=== PATIENT | male | born 1995 | race Caucasian/White ===

== ENCOUNTER 2019-09-25 14:03 | Emergency (ER) | payer MEDICAID, SELFPAY ==
[2019-09-25 14:08] VITALS: BP 140/78; PULSE 89; RESP 18; TEMP 36.7; O2SAT 98; BMI 22.0
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
[2019-09-25 14:30] VITALS: BP 130/68; PULSE 72; RESP 18; O2SAT 99
[2019-09-25 15:50] VITALS: RESP 18; O2SAT 98
[2019-09-25] MEDS: fentaNYL 50 mcg/mL INJ 2mL 100 MCG IVP (15:50)
[2019-09-25] MEDS: bacitracin ointment Pkt 1 EACH TOPICAL (16:49)
[2019-09-25 16:59] VITALS: BP 133/79; PULSE 87; RESP 16; TEMP 36.5; O2SAT 98
== END 2019-09-25 17:01 | disposition home or self-care (01) ==
PROVIDERS: Emergency Provider Emergency Medicine; PCP Family Medicine
DX: T21.01XA Burn of unspecified degree of chest wall, initial encounter (principal); T22.012A Burn of unspecified degree of left forearm, initial encounter; X16.XXXA Contact with hot heating appliances, radiators and pipes, initial encounter
CPT/HCPCS: 12345; 96374; 96375; 96376; 99282; 99283; J3010

== ENCOUNTER 2021-08-19 17:04 | Emergency (ER) | payer MEDICAID, SELFPAY ==
[2021-08-19 17:15] VITALS: BP 137/71; PULSE 83; RESP 16; TEMP 36.5; O2SAT 96
--- NOTE | 2021-08-19 17:26 | ED_ITS ---
HPI - Extremity Problem General: Chief complaint: Extremity Problem,Nontraumatic Stated complaint: Wants his hand to be looked at Time Seen by Provider: 08/19/21 17:26 History of Present Illness: 25-year-old male patient comes in today wanting his dressing changed to his right hand. Patient a week ago had cut his hand while dressing a chicken and injuring his tendon in his hand. Patient had surgery in [place] and was supposed to follow-up today for a dressing change and evaluation. Patient was unable to make the appointment due to not having any gas money. Patient was unable to get a Medicaid ride for not calling in advance. Dressing is intact. Patient is afebrile. Patient did smell of EtOH. Associated symptoms: Deny chest pain Review of Systems General: Reports: 10 or more systems reviewed and unremarkable except in HPI and below Card: Denies: chest pain Resp: Denies: dyspnea Musc: Reports: other (Right hand wound) [facility] ED PFSH: Social History (Updated 09/25/19 @ 14:16 by Carlie Dumont RN) Last alcohol use date: 09/24/19 Physical Exam Const: COMMON NORMALS: alert HENMT: HEAD & SCALP: normal to inspection Neck/C-Spine: GENERAL: Yes normal visual inspection Extremity: RIGHT UPPER EXTREMITY: Yes hand & digits (Hand is in a splint mid arm down, cap refill intact.) Right hand and digits: Yes inspection Neuro: SENSORIUM/ORIENTATION: Yes alert Course Vital Signs: Vital signs: Vital Signs Temperature 97.7 F 08/19/21 17:15 Pulse Rate 83 08/19/21 17:15 Respiratory Rate 16 08/19/21 17:15 Blood Pressure 137/71 08/19/21 17:15 Pulse Oximetry 96 08/19/21 17:15 MDM - Extremity (Nontraumatic) Medical Decision Making 25-year-old male patient comes in today with wound to the right hand. Patient was wanting a dressing change from his surgery to for repair of tendon from in [facility] 1 week ago. Patient was unable to go to his appointment today due to lack of transportation. I attempted to contact his surgeon at [facility] in [place] but no one was available. Vital signs were normal and exam was unremarkable. I recommended the patient follow-up with surgeon's office in the morning to discuss with them options of further care. Patient reported understanding agreed to plan. Differential diagnosis includes wound infection, tendon injury, substance use disorder. Discharge Plan Discharge Patient Disposition: Home Clinical Impression: Laceration of hand with complication Qualifiers: Encounter type: initial encounter Laterality: right Qualified Code(s): S61.411A - Laceration without foreign body of right hand, initial encounter Condition: Stable Prescriptions: No Action No Known Home Medications 0RF [place] 7.5-325 mg tablet 1 tab PO Q6H PRN (Reason: pain) Qty: 10 0RF Discharge Orders: Discharge ED (Routine); Ordered 08/19/21 Ordered By: Moshe Turcios Referrals: Enrique Florentino MD [Primary Care Provider] - Discharge Diet: Usual diet Discharge Activity: Increase activity as tolerated Patient Instructions: Opioid Safety Activity Restrictions/Additional Instructions: Follow-up with primary care in the morning, they can contact the surgeons office for further evaluation and treatment. Coding Level of Care Code ED Virologist for John Myers
== END 2021-08-19 18:09 | disposition home or self-care (01) ==
PROVIDERS: Emergency Provider Nurse Practitioner Family; PCP Family Medicine
DX: Z48.00 Encounter for change or removal of nonsurgical wound dressing (principal)
CPT/HCPCS: 99281

== ENCOUNTER 2021-08-23 17:16 | Emergency (ER) | payer MEDICAID, SELFPAY ==
[2021-08-23 17:17] VITALS: BP 117/68; PULSE 69; RESP 16; TEMP 36.6; O2SAT 98
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
== END 2021-08-23 17:44 | disposition home or self-care (01) ==
PROVIDERS: Emergency Provider Nurse Practitioner Family; PCP Family Medicine
DX: M79.641 Pain in right hand (principal)
CPT/HCPCS: 99283

== ENCOUNTER 2021-08-24 11:47 | Emergency (ER) | payer MEDICAID, SELFPAY ==
[2021-08-24 12:08] VITALS: BP 130/65; PULSE 86; RESP 19; TEMP 36.6; O2SAT 97; BMI 22.8
--- NOTE | 2021-08-24 12:17 | W.ED.EXTPRO ---
Documented by User: [email or web address] Trejo 08/24/21 13:51 HPI - Extremity Problem General: Chief complaint: General Medical Stated complaint: Says his hand is turning black, yellow, swollen Time Seen by Provider: 08/24/21 11:49 Source: patient Mode of arrival: ambulatory Limitations: no limitations History of Present Illness: Patient is a 25-year-old male who presents to ED today for evaluation following flexor tendon repairs on his right hand. Patient states he had surgery by [facility] Monson hand surgeon, on 08/11. Patient has been seen here in our facility twice already for similar complaints. Patient has yet to follow-up with his hand surgeon even though he has had multiple appointments made stating he does not have transportation to [place]. Patient is very neurotic on exam and demanding that I send him by emergency transport to [place] stating he is going to lose all of his fingers. He is not wearing his splint currently. He admittedly has not been wearing this is much as he should. He also has not been elevating his hand/digits like he is supposed to. He has finished his antibiotic course that he was prescribed following surgery. MD Complaint: extremity pain and extremity swelling Onset (ago): day(s) Associated symptoms: Deny fever(s) Review of Systems Const: Denies: fever(s), chills or body aches Musc: Reports: extremity pain (R hand) and extremity swelling (R hand) Neuro: Denies: numbness in extremities or sensory changes [facility] ED PFSH: Social History Last alcohol use date: 09/24/19 Physical Exam Const: COMMON NORMALS: no acute distress, average body habitus, patient oriented x3, no limitations, alert and well nourished Cardio: COMMON NORMALS: regular rate and regular rhythm RATE: regular rate RHYTHM: regular rhythm Extremity: GENERAL: Yes normal exam except as noted RIGHT UPPER EXTREMITY: Yes hand & digits OTHER: pt has intact sutures to palmar aspects of R 2-5 digits from recent flexor tendon repairs; no wound dehiscence; digits are diffusely swollen; cap refill and sensation are intact; he has some mild underlying purulence to his second and third digits near incision site; no cellulitis noted; no lymphangitic streaking Neuro: COMMON NORMALS: patient oriented x3 SENSORIUM/ORIENTATION: Yes alert Course Consultations: Consultation #1: Dr. Garcia-[facility] hand surgeon-he was sent multiple pictures of patients hand/digits and recommend we place him on Clindamycin, recommend he wear splint and elevate like he is supposed to and he is willing to see patient in office whenever he is able to get a ride-preferably as soon as possible but there is no need for emergent transport at this time Vital Signs: Vital signs: Vital Signs Temperature 97.9 F 08/24/21 12:08 Pulse Rate 86 08/24/21 12:08 Respiratory Rate 16 08/24/21 13:46 Blood Pressure 130/65 08/24/21 12:08 Pulse Oximetry 99 08/24/21 13:46 MDM - Extremity (Nontraumatic) Medical Decision Making Have spoken to patient's hand surgeon Dr. Garcia and sent him multiple pictures of patient's wounds. He recommended placing patient on Clindamycin. He needs to wear his splint and elevate the extremity like he is supposed to be doing. Unfortunately I think noncompliance and transportation issues have hindered patient's postsurgical results. He was on the phone with [employer] during our examination and I believe has secured transport to [place] for next week sometime. I recommended patient try to get a sooner ride to [place] by a friend/family member if possible. Dr. Garcia stated he would be willing to see patient as a walk-in at any time if he is able to get to [place]. Recommended patient call prior to going to make sure surgeon is not in OR that day. Patient needs to fill his Clindamycin and start on it immediately. Return to ED precautions given. Discharge Plan Discharge Patient Disposition: Home Clinical Impression: Status post tendon repair, Post-operative pain Condition: Stable Prescriptions: New clindamycin HCl 300 mg capsule 300 mg PO Q6H 7 Days Qty: 28 0RF No Action hydrocodone-acetaminophen 7.5-325 mg tablet 1 tab PO Q6H PRN (Reason: pain (scale score 7-10)) Qty: 10 0RF Discharge Orders: Discharge ED (Routine); Ordered 08/24/21 Ordered By: Angella Rea Referrals: Enrique Florentino MD [Primary Care Provider] - Coding Level of Care Code ED Accounting Lecturer for Chg Fwd Exam Expanded Problem Focused Documented by User: Corey Gill DO 08/25/21 06:48 HPI - Extremity Problem General: Chief complaint: General Medical Stated complaint: Says his hand is turning black, yellow, swollen Time Seen by Provider: 08/24/21 11:49 PFSH ED PFSH: Social History Last alcohol use date: 09/24/19 Course Vital Signs: Vital signs: Vital Signs Temperature 97.9 F 08/24/21 12:08 Pulse Rate 86 08/24/21 12:08 Respiratory Rate 16 08/24/21 13:46 Blood Pressure 130/65 08/24/21 12:08 Pulse Oximetry 99 08/24/21 13:46 MDM - Extremity (Nontraumatic) Medical Decision Making Have spoken to patient's hand surgeon Dr. Garcia and sent him multiple pictures of patient's wounds. He recommended placing patient on Clindamycin. He needs to wear his splint and elevate the extremity like he is supposed to be doing. Unfortunately I think noncompliance and transportation issues have hindered patient's postsurgical results. He was on the phone with [employer] during our examination and I believe has secured transport to [place] for next week sometime. I recommended patient try to get a sooner ride to [place] by a friend/family member if possible. Dr. Garcia stated he would be willing to see patient as a walk-in at any time if he is able to get to [place]. Recommended patient call prior to going to make sure surgeon is not in OR that day. Patient needs to fill his Clindamycin and start on it immediately. Return to ED precautions given. Chart reviewed and patient discussed with midlevel. Agree with assessment and plan. Discharge Plan Discharge Patient Disposition: Home Clinical Impression: Status post tendon repair, Post-operative pain Condition: Stable Prescriptions: New clindamycin HCl 300 mg capsule 300 mg PO Q6H 7 Days Qty: 28 0RF No Action hydrocodone-acetaminophen 7.5-325 mg tablet 1 tab PO Q6H PRN (Reason: pain (scale score 7-10)) Qty: 10 0RF Discharge Orders: Discharge ED (Routine); Ordered 08/24/21 Ordered By: Angella Rea Referrals: Enrique Florentino MD [Primary Care Provider] - Coding Level of Care Code ED Accounting Lecturer for Chg Fwd Exam Expanded Problem Focused
[2021-08-24 13:46] VITALS: RESP 16; O2SAT 99
[2021-08-24] MEDS: morphine 4 mg/mL SDV 1 mL IM (13:46)
== END 2021-08-24 14:52 | disposition home or self-care (01) ==
PROVIDERS: Emergency Provider Physician Assistant; PCP Family Medicine
DX: G89.18 Other acute postprocedural pain (principal); Z98.890 Other specified postprocedural states
CPT/HCPCS: 96372; 99283; J2270

== ENCOUNTER 2021-08-27 14:32 | Emergency (ER) | payer MEDICAID, SELFPAY ==
--- NOTE | 2021-08-27 14:41 | PC.NURSE ---
CALL TO [facility] NO ANSWER WILL ATTEMPT TO TRIAGE AGAIN LATER.
[2021-08-27 14:55] VITALS: BP 122/73; PULSE 105; RESP 18; TEMP 36.6; O2SAT 99; BMI 21.2
--- NOTE | 2021-08-27 15:04 | W.ED.EXTPRO ---
HPI - Extremity Problem General: Chief complaint: Extremity Injury, Upper Stated complaint: hand injury Time Seen by Provider: 08/27/21 15:00 History of Present Illness: Patient is a 25-year-old male comes to the ED with Right hand pain. Patient has been seen here multiple times for same complaint within the last week. Patient cut right hand back on August 13 and had multiple tendons severed in fingers. He went and saw hand specialist and they performed tendon reattachment surgery on right hand. He missed his follow-up appointment with his hand surgeon but is rescheduled to see hand surgeon on August 31 for follow-up. He is here to have right hand bandage reapplied and for post pain in right hand. He is currently taking clindamycin. denies any reinjury or trauma to her right hand since surgery. Associated symptoms: Deny chest pain, fever(s) or rash Review of Systems Const: Denies: fever(s), chills or fatigue Eyes: Denies: change in vision or eye discomfort ENMT: Denies: throat pain, odynophagia, nasal discharge or nasal congestion Card: Denies: chest pain, palpitations, edema, swelling of feet/ankles, dyspnea on exertion or orthopnea Resp: Denies: dyspnea, productive cough or non-productive cough GI: Denies: abdominal pain, nausea, vomiting, diarrhea, constipation or hematochezia : Denies: flank pain, difficulty urinating, dysuria or hematuria Musc: Reports: extremity pain (Right hand pain-postop); Denies: neck pain, back pain or extremity swelling Skin/Breast: Denies: rash or new lesions Neuro: Denies: headache(s), numbness in extremities or weakness in extremities PFS ED PFSH: Medical History No pertinent family history Surgical History Status post tendon repair Social History Last alcohol use date: 09/24/19 Physical Exam Const: COMMON NORMALS: no acute distress, patient oriented x3 and alert GENERAL APPEARANCE: cooperative and comfortable HENMT: COMMON NORMALS: normocephalic HEAD & SCALP: normocephalic MOUTH: Normal oral and palatal mucosa present THROAT: posterior oropharynx normal and uvula midline Neck/C-Spine: COMMON NORMALS: supple GENERAL: Yes normal visual inspection Resp: COMMON NORMALS: normal respiratory effort, No retractions, No use of accessory muscles and clear to auscultation bilaterally AUSCULTATION: clear to auscultation bilaterally Cardio: COMMON NORMALS: regular rate, regular rhythm, S1 normal heart sound present, S2 normal heart sound present, No gallops present (Cardio), No clicks present (Cardio), No murmurs present (Cardio) and Peripheral pulses 2+ throughout RATE: regular rate RHYTHM: regular rhythm HEART SOUNDS: S1 normal heart sound present and S2 normal heart sound present PERIPHERAL PULSES: Peripheral pulses 2+ throughout GI: COMMON NORMALS: Normal to inspection, nondistended, normoactive bowel sounds present, Soft to palpation, non-tender and no masses PALPATION: Yes Soft to palpation : COMMON NORMALS: Yes no CVA tenderness BLADDER/KIDNEY EXAM: Yes no CVA tenderness Back/Pelvis: COMMON NORMALS: no CVA tenderness Extremity: NARRATIVE EXTREMITY EXAM: pt has intact sutures to palmar aspects of R 2-5 digits from recent flexor tendon repairs; no wound dehiscence; digits are diffusely swollen; cap refill and sensation are intact. no cellulitis noted; no lymphangitic streaking Neuro: COMMON NORMALS: patient oriented x3 and moves all extremities SENSORIUM/ORIENTATION: Yes alert Skin: GENERAL SKIN EXAM: dry skin Course Vital Signs: Vital signs: Vital Signs Temperature 97.9 F 08/27/21 14:55 Pulse Rate 102 H 08/27/21 15:08 Respiratory Rate 18 08/27/21 15:08 Blood Pressure 122/73 08/27/21 15:08 Pulse Oximetry 99 08/27/21 15:08 MDM - Extremity (Nontraumatic) Medical Decision Making Patient is a 25-year-old male comes to the ED with right hand pain. Patient has been seen here approximately 3 times within the last week for same complaint. He was finally able to set up a follow-up appointment with the hand surgeon on August 31. He has continued taking his clindamycin as previously prescribed. Exam of right hand shows postop tendon repair with no signs of cellulitis noted. I strongly advised patient that he needs to follow-up with surgeon at his scheduled appointment on August 31 for further evaluation and management of right hand pain and postsurgical healing. I told to continue taking his clindamycin as prescribed and I sent him with a prescription of hydrocodone 5/325mg #8 tablets for pain. Return to ED precautions given. Patient understood and agreed with plan. Discharge Plan Discharge Patient Disposition: Home Clinical Impression: Status post tendon repair, Post-operative pain Condition: Stable Prescriptions: No Action hydrocodone-acetaminophen 7.5-325 mg tablet 1 tab PO Q6H PRN (Reason: pain (scale score 7-10)) Qty: 10 0RF clindamycin HCl 300 mg capsule 300 mg PO Q6H 7 Days Qty: 28 0RF Discharge Orders: Discharge ED (Routine); Ordered 08/27/21 Ordered By: Enrique Bowers Referrals: Enrique Florentino MD [Primary Care Provider] - Discharge Diet: Regular Discharge Activity: Increase activity as tolerated Patient Instructions: Opioid Safety Activity Restrictions/Additional Instructions: Follow-up with hand specialist at your scheduled appointment on August 31. Take medications as prescribed. Continue taking previously prescribed antibiotic. Return to the ER or your medical provider if condition worsens. Please read and understand discharge instructions. Thank you for choosing [facility] for your healthcare needs today. Please realize this is an emergency room and that we are providing you with a medical screening exam and this may not be complete and all inclusive of all the testing and or work up that you may need to determine your ailment or severity of your illness. It is very important that you follow up as instructed or that you return to the Emergency Department should you have concerns or if your condition changes or worsens in any way. 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
[2021-08-27 15:08] VITALS: BP 122/73; PULSE 102; RESP 18; O2SAT 99
[2021-08-27] MEDS: HYDROcodone-acetaminophen 5-325 mg Tablet 1 TAB PO (15:16)
== END 2021-08-27 15:17 | disposition home or self-care (01) ==
LOC: ER 15:10
PROVIDERS: Emergency Provider Physician Assistant; PCP Family Medicine
DX: G89.18 Other acute postprocedural pain (principal); M79.641 Pain in right hand
CPT/HCPCS: 99283

== ENCOUNTER 2023-06-09 04:44 | Emergency (ER) | payer MEDICAID, SELFPAY ==
[2023-06-09 04:47] VITALS: BP 136/77; PULSE 83; RESP 20; TEMP 36.4; O2SAT 97; BMI 22.8
--- NOTE | 2023-06-09 04:48 | W.ED.DENTAL ---
HPI - Dental/Oral General: Chief complaint: Dental/Oral Stated complaint: Mouth Pain Time Seen by Provider: 06/09/23 04:47 History of Present Illness: 27-year-old male presents to the emergency department with complaints of dental pain to the upper left teeth. He states this has been going on for approximately 6 years and has not seen a dentist for it. He states he noticed the dental pain more since he stopped drinking. He states that he feels like the pain is a throbbing pain that goes from his teeth down through his shoulder to his feet and back up to his mouth. Patient states that nothing seems to make it better nothing seems to make his pain worse. He denies difficulty with phonation or swallowing. Review of Systems General: Reports: 10 or more systems reviewed and unremarkable except in HPI and below ENMT: Reports: dental pain [facility] ED PFSH: Medical History No pertinent family history Surgical History Status post tendon repair Physical Exam Const: COMMON NORMALS: no acute distress, patient oriented x3 and alert HENMT: COMMON NORMALS: normocephalic, atraumatic, Normal external nose present and moist oral mucous membranes HEAD & SCALP: normocephalic and atraumatic NOSE: Normal external nose present TEETH & GINGIVA: Yes caries, Yes poor dentition and Yes teeth discoloration Eye: COMMON NORMALS: Equal, round and reactive pupils present and EOMs intact bilaterally PUPIL: Yes Equal, round and reactive pupils present Neck/C-Spine: COMMON NORMALS: full ROM, supple and no meningeal signs Resp: COMMON NORMALS: normal respiratory effort and clear to auscultation bilaterally AUSCULTATION: clear to auscultation bilaterally Cardio: COMMON NORMALS: regular rate, regular rhythm, S1 normal heart sound present and S2 normal heart sound present RATE: regular rate RHYTHM: regular rhythm HEART SOUNDS: S1 normal heart sound present and S2 normal heart sound present GI: COMMON NORMALS: Normal to inspection, nondistended, normoactive bowel sounds present and Soft to palpation PALPATION: Yes Soft to palpation Extremity: COMMON NORMALS: normal to inspection and full ROM Neuro: COMMON NORMALS: patient oriented x3 SENSORIUM/ORIENTATION: Yes alert MENINGEAL SIGNS: Yes no meningeal signs Psych: COMMON NORMALS: cooperative and normal affect Skin: COMMON NORMALS: no rashes or lesions noted GENERAL SKIN EXAM: no rashes or lesions noted Course Vital Signs: Vital signs: Vital Signs Temperature 97.6 F 06/09/23 04:47 Pulse Rate 79 06/09/23 04:58 Respiratory Rate 14 06/09/23 04:58 Blood Pressure 132/77 06/09/23 04:58 Pulse Oximetry 96 06/09/23 04:58 Oxygen Delivery Me thod Room Air 06/09/23 04:58 MDM - Dental/Oral Medical Decision Making Physical exam completed and documented I will provide the patient written prescription for NSAIDs and recommend he follow-up with his dentist. Medical Records I reviewed the patient's medical records. No radiology studies performed this visit Discharge Plan Discharge Patient Disposition: Home Clinical Impression: Toothache, Dental caries Prescriptions: New naproxen 500 mg tablet 500 mg PO Q12H PRN (Reason: pain) Qty: 20 0RF No Action hydrocodone-acetaminophen 7.5-325 mg tablet 1 tab PO Q6H PRN (Reason: pain (scale score 7-10)) Qty: 10 0RF Discharge Orders: Discharge ED (Routine); Ordered 06/09/23 Ordered By: Clemente Lai Referrals: Enrique Florentino MD [Primary Care Provider] - Discharge Diet: Usual diet Discharge Activity: Resume usual activity Patient Instructions: Opioid Safety, Pain Management Activity Restrictions/Additional Instructions: Follow-up with your dentist for additional evaluation. 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
[2023-06-09 04:58] VITALS: BP 132/77; PULSE 79; RESP 14; O2SAT 96
[2023-06-09] MEDS: ketorolac 30 mg/mL INJ IM (05:08)
== END 2023-06-09 05:11 | disposition home or self-care (01) ==
PROVIDERS: Emergency Provider Internal Medicine; PCP Family Medicine
DX: K02.9 Dental caries, unspecified (principal)
CPT/HCPCS: 96372; 99284; J1885

== ENCOUNTER 2023-06-20 08:02 | Emergency (ER) | payer MEDICAID, SELFPAY ==
--- NOTE | 2023-06-20 08:06 | ECG_ITS ---
[facility] Test Date: 2023-06-20 Pat Name: Mike Rocha Department: Room: Gender: Male [employer]: : 1995 Requested By: Corey Ortiz Order Number: [id number] Ruth MD: Amy Christianson M.D. Measurements Intervals [place] Rate: 81 P: 88 [place]: 126 QRS: 91 QRSD: 92 T: 82 QT: 400 QTc: 467 Interpretive Statements SINUS RHYTHM BORDERLINE RIGHT AXIS DEVIATION [QRS AXIS > 90] Compared to ECG 03/12/2017 10:02:59 Incomplete right bundle-branch block no longer present Electronically Signed On 06-21-2023 23:41:19 CDT by Amy Christianson M.D. [id number]
[2023-06-20 08:07] VITALS: BP 117/62; PULSE 88; RESP 16; TEMP 36.6; O2SAT 99
[2023-06-20 08:23] LABS: Basophils % 0.7 %; Eosinophils # 0.1 10^3/uL (0.0-0.8); Eosinophils % 1.1 %; Hematocrit 36.9 % (37-53); Lymphocytes # 1.5 10^3/uL (0.8-4.8); Lymphocytes % 33.4 %; Mean Corpuscular HGB Conc 33.9 g/dL (30-55); Mean Corpuscular Hemoglobin 31.8 pg (27-33); Mean Corpuscular Volume 93.9 fl (82-101); Mean Platelet Volume 10.1 fL (7.4-10.4); Monocytes # 0.3 10^3/uL (0.2-0.9); Monocytes % 6.7 %; Neutrophils % 57.9 %; Nucleated Red Blood Cells % 0 %; Platelet Count 240 10^3/cmm (157-399); Red Blood Count 3.93 10^6/uL (3.85-5.65); Red Cell Distribution Width 11.5 % (12.1-15.1); White Blood Count 4.49 10^3/uL (3.29-11.43)
--- NOTE | 2023-06-20 08:26 | XR_ITS ---
WS: [id number] Exam: XR chest 1V portable [id number] Date/Time of Exam: 06/20/2023 8:26 AM Reason For Exam: dyspnea/cough Comparison 05/13/2016. Findings: The lungs are clear and fully expanded. Costophrenic angles are sharp. No infiltrates. Bronchovascula r relief appears normal. Cardiac silhouette is unremarkable. Bony elements are intact. IMPRESSION: Unremarkable chest radiograph.
[2023-06-20 08:38] LABS: D Dimer 0.32 ug/mLFEU (0-0.59)
--- NOTE | 2023-06-20 08:39 | ED_ITS ---
HPI - Chest Pain 2 General: Chief Complaint: Chest Pain Stated Complaint: chest pain Time Seen by Provider: 06/20/23 08:10 Source: patient Mode of arrival: ambulatory History of Present Illness: 27-year-old male presents with complaint s of substernal chest pain. No radiation of the pain. 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 No fever sweats chills or productive cough no hemoptysis. MD complaint: chest pain Associated symptoms: Deny abdominal pain, dyspnea or fever(s) Review of Systems 2 Const: Denies: fever(s) or chills Card: Denies: chest pain Resp: Denies: dyspnea GI: Denies: abdominal pain : Denies: dysuria, urinary frequency or urinary urgency Musc: Denies: neck pain or back pain Skin/Breast: Denies: rash PFSH ED 2 PFSH: Medical History Psychiatric care No pertinent family history Surgical History Status post tendon repair Physical Exam 2 Const: COMMON NORMALS: no acute distress GENERAL APPEARANCE: cooperative and comfortable ORIENTATION/CONSCIOUSNESS: Yes awake, Yes oriented to person, Yes oriented to place and Yes oriented to time HENMT: COMMON NORMALS: normocephalic, atraumatic and hearing grossly normal bilaterally HEAD & SCALP: normocephalic and atraumatic Resp: COMMON NORMALS: normal respiratory effort, No retractions, No use of accessory muscles and clear to auscultation bilaterally AUSCULTATION: clear to auscultation bilaterally Cardio: COMMON NORMALS: regular rate, regular rhythm and No murmurs present (Cardio) RATE: regular rate RHYTHM: regular rhythm GI: COMMON NORMALS: Soft to palpation and No hepatosplenomegaly present A USCULTATION: Yes normoactive bowel sounds PALPATION: Yes Soft to palpation, No Tenderness to palpation present (GI), No Guarding due to palpation present (GI) and Yes No hepatosplenomegaly present Extremity: COMMON NORMALS: normal to inspection, capillary refill normal, no clubbing, cyanosis or edema, no calf tenderness and no pedal edema Neuro: SENSORIUM/ORIENTATION: Yes oriented to person, Yes oriented to place and Yes oriented to time Skin: COMMON NORMALS: no rashes or lesions noted GENERAL SKIN EXAM: no rashes or lesions noted Course 2 Vital Signs: Vital signs: Vital Signs Temperature 97.9 F 06/20/23 12:32 Pulse Rate 69 06/20/23 12:32 Respiratory Rate 16 06/20/23 12:32 Blood Pressure 95/79 06/20/23 12:32 Pulse Oximetry 99 06/20/23 12:32 Oxygen Delivery Me thod Room Air 06/20/23 09:45 MDM - Chest Pain Medical Decision Making Patient extremely anxious has a history of substance abuse. He test positive for marijuana but negative for methamphetamines and alcohol. No evidence of acute coronary syndrome his D-dimer is normal chest x-ray is unremarkable cardiac enzymes negative EKG does not show any acute changes white count is normal hemoglobin stable. Suspect this may be GI in nature discharge patient home on Protonix he has any worsening or changes symptoms develop fever return to the emergency room he is feeling much better and is anxiously at the time of discharge Medical Records I reviewed the patient's medical records. Lab Data I reviewed the patient's lab results. 06/20/23 08:17 06/20/23 08:17 Laboratory Results WBC 4.49 10^3/uL (3.29-11.43) 06/20/23 08:17 RBC 3.93 10^6/uL (3.85-5.65) 06/20/23 08:17 Hgb 12.50 g/dL (11.27-16.99) 06/20/23 08:17 Hct 36.9 % (37-53) L 06/20/23 08:17 MCV 93.9 fl (82-101) 06/20/23 08:17 MCH 31.8 pg (27-33) 06/20/23 08:17 MCHC 33.9 g/dL (30-55) 06/20/23 08:17 RDW 11.5 % (12.1-15.1) L 06/20/23 08:17 Plt Count 240 10^3/cmm (157-399) 06/20/23 08:17 MPV 10.1 fL (7.4-10.4) 06/20/23 08:17 Neut % (Auto) 57.9 % 06/20/23 08:17 Lymph % (Auto) 33.4 % 06/20/23 08:17 [place] % (Auto) 6.7 % 06/20/23 08:17 Eos % (Auto) 1.1 % 06/20/23 08:17 Baso % (Auto) 0.7 % 06/20/23 08:17 Neut # (Auto) 2.60 10^3/uL (1.8-7.7) 06/20/23 08:17 Lymph # (Auto) 1.5 10^3/uL (0.8-4.8) 06/20/23 08:17 [place] # (Auto) 0.3 10^3/uL (0.2-0.9) 06/20/23 08:17 Eos # (Auto) 0.1 10^3/uL (0.0-0.8) 06/20/23 08:17 Baso # (Auto) 0.0 10^3/uL (0.0-0.1) 06/20/23 08:17 Nucleated RBC % (auto) 0 % 06/20/23 08:17 Nucleated RBCs # 0.0 /100WBC 06/20/23 08:17 D-Dimer 0.32 ug/mLFEU (0-0.59) 06/20/23 08:17 Sodium 139 mmol/L (136-145) 06/20/23 08:17 Potassium 3.9 mmol/L (3.5-5.1) 06/20/23 08:17 Chloride 104 mmol/L (98-107) 06/20/23 08:17 Carbon Dioxide 23 mmol/L (22-29) 06/20/23 08:17 Anion Gap 15.9 (5-19) 06/20/23 08:17 BUN 12 mg/dL (6-20) 06/20/23 08:17 Creatinine 0.8 mg/dL (0.7-1.2) 06/20/23 08:17 GFR Calculation 116.0 mL/min (90-130) 06/20/23 08:17 Glucose 105 mg/dL (65-115) 06/20/23 08:17 Calculated Osmolality 288 mOsm/kg (285-295) 06/20/23 08:17 Calcium 9.3 mg/dL (8.5-10.5) 06/20/23 08:17 Total Bilirubin 0.6 mg/dL (0.15-1.2) 06/20/23 08:17 AST 13 U/L (0-40) 06/20/23 08:17 ALT 10 U/L (0-41) 06/20/23 08:17 Alkaline Phosphatase 60 U/L (40-130) 06/20/23 08:17 Troponin T Baseline < 6 ng/L (0-15) 06/20/23 08:17 Troponin T 120 Minute 6.00 ng/L (0-15) 06/20/23 10:38 Delta Troponin T 0.09807 ABS# (0-10) 06/20/23 10:38 Total Protein 7.5 g/dL (6.6-8.7) 06/20/23 08:17 Albumin 4.4 g/dL (3.5-5.2) 06/20/23 08:17 Globulin 3.1 g/dL (1.3-4.6) 06/20/23 08:17 Urine Color Yellow (Yellow) 06/20/23 08:56 Urine Appearance Sl hazy (CLEAR) A 06/20/23 08:56 Urine pH 7 (5-7) 06/20/23 08:56 Ur Specific [place] 1.015 (1.005-1.030) 06/20/23 08:56 Urine Protein Neg (Negative) 06/20/23 08:56 Urine Glucose (UA) Norm (Normal) 06/20/23 08:56 Urine Ketones Negative (Negative) 06/20/23 08:56 Urine Blood Neg (Negative) 06/20/23 08:56 Urine Nitrate Negative (Negative) 06/20/23 08:56 Urine Bilirubin Neg (Negative) 06/20/23 08:56 Urine Urobilinogen Norm mg/dL (Negative) 06/20/23 08:56 Ur Leukocyte Esterase Negative (Negative) 06/20/23 08:56 Urine RBC 0-4 /hpf (0-2) H 06/20/23 08:56 Urine WBC 0-4 /hpf (0-5) H 06/20/23 08:56 Ur Squamous Epith Cells 0-4 /hpf (0-5) H 06/20/23 08:56 Amorphous Sediment Trace /hpf 06/20/23 08:56 Urine Bacteria Trace /hpf (NONE) 06/20/23 08:56 Urine Mucus 1+ /hpf 06/20/23 08:56 Urine Opiates Screen Negative ng/mL (Negative) 06/20/23 08:56 Ur Barbiturates Screen Negative ng/mL (Negative) 06/20/23 08:56 Ur Phencyclidine Scrn Negative ng/mL (Negative) 06/20/23 08:56 Ur Amphetamines Screen Negative ng/mL (Negative) 06/20/23 08:56 U Benzodiazepines Scrn Negative ng/mL (Negative) 06/20/23 08:56 Urine Cocaine Screen Negative ng/mL (Negative) 06/20/23 08:56 U Marijuana (THC) Screen Positive ng/mL (Negative) H 06/20/23 08:56 Ethyl Alcohol < 10 mg/dL (0-10) 06/20/23 08:17 All radiology interpretation(s) finalized by discharge Discharge Plan Discharge Patient Disposition: Home Clinical Impression: Atypical chest pain Condition: Stable Prescriptions: New Pepcid 40 mg tablet 40 mg PO BID Qty: 60 0RF No Action naproxen 500 mg tablet 500 mg PO Q12H PRN (Reason: pain) Qty: 20 0RF Discharge Orders: Discharge ED (Routine); Ordered 06/20/23 Ordered By: Corey Gill Referrals: Enrique Florentino MD [Primary Care Provider] - Discharge Diet: As Directed Discharge Activity: Resume usual activity Patient Instructions: Diet for Stomach Ulcers and Gastritis (ED), GERD (Gastroesophageal Reflux Disease) (ED), Opioid Safety, Pain Management Activity Restrictions/Additional Instructions: Thank you for choosing [facility] for your healthcare needs today. Please realize this is an emergency room and that we are providing you with a medical screening exam and this may not be complete and all inclusive of all the testing and or work up that you may need to determine your ailment or severity of your illness. It is very important that you follow up as instructed or that you return to the Emergency Department should you have concerns or if your condition changes or worsens in any way. Coding Level of Care Code ED Clinical Dietician for John Myers
[2023-06-20 08:40] LABS: Alanine Aminotransferase 10 U/L (0-41); Albumin Level 4.4 g/dL (3.5-5.2); Alcohol Level < 10 mg/dL (0-10); Alkaline Phosphatase 60 U/L (40-130); Anion Gap 15.9 (5-19); Aspartate Amino Transferase 13 U/L (0-40); Blood Urea Nitrogen 12 mg/dL (6-20); Calcium 9.3 mg/dL (8.5-10.5); Carbon Dioxide 23 mmol/L (22-29); Chloride 104 mmol/L (98-107); Creatinine Clr Calc Pharmacy 139.2435; Globulin 3.1 g/dL (1.3-4.6); Glucose 105 mg/dL (65-115); Osmolality Calculated 288 mOsm/kg (285-295); Potassium 3.9 mmol/L (3.5-5.1); Sodium 139 mmol/L (136-145); Total Bilirubin 0.6 mg/dL (0.15-1.2); Total Protein 7.5 g/dL (6.6-8.7)
--- NOTE | 2023-06-20 09:24 | PC.PHAR ---
PT WANTS HYDROCODONE FROM 2021 OFF HIS RECORD. HE DOES NOT TAKE IT AND DOES NOT SEEK IT. 06/20/23
[2023-06-20 09:45] VITALS: BP 115/67; PULSE 69; O2SAT 99
--- NOTE | 2023-06-20 09:53 | ECG_ITS ---
[facility] Test Date: 2023-06-20 Pat Name: Mike Rocha Department: Room: Gender: Male Sub Prior: : 1995 Requested By: Corey Ortiz Order Number: [id number] Ruth MD: Amy Christianson M.D. Measurements Intervals [place] Rate: 55 P: 89 [place]: 122 QRS: 92 QRSD: 96 T: 86 QT: 442 QTc: 426 Interpretive Statements SINUS BRADYCARDIA WITH SINUS ARRHYTHMIA BORDERLINE RIGHT AXIS DEVIATION [QRS AXIS > 90] EARLY REPOLARIZATION [ST ELEVATION WITH NORMALLY INFLECTED T-WAVE] Compared to ECG 06/20/2023 08:06:54 Early repolarization now present Sinus rhythm no longer present Electronically Signed On 06-21-2023 23:43:45 CDT by Amy Christianson M.D. [id number]
[2023-06-20 09:55] LABS: Add Urine Microscopic? YES; Bilirubin Urine Neg (Negative); Blood Urine Neg (Negative); Glucose Urine UA Norm (Normal); Ketones Urine Negative (Negative); Leukocyte Esterase Urine Negative (Negative); Nitrate Urine Negative (Negative); Protein Urine Neg (Negative); Specific Gravity, Urine 1.015 (1.005-1.030); Urine Appearance SL Hazy (CLEAR); Urine Color Yellow (Yellow); Urobilinogen Urine Norm (Negative); pH Urine 7 (5-7)
[2023-06-20 10:06] LABS: Add Urine Culture? No; Amorphous Sediment Urine TRACE /hpf; Amphetamines Screen Urine Negative (Negative); Bacteria Urine TRACE /hpf; Barbiturates Screen Urine Negative (Negative); Benzodiazepines Screen Urine Negative (Negative); Cocaine Screen Urine Negative (Negative); Mucus Urine 1+ /hpf; Opiate Screen Urine Negative (Negative); PCP Screen Urine Negative (Negative); RBC Urine 0-4 /hpf (0-2); Squamous Epithelial Cell Urine 0-4 /hpf (0-5); THC Screen Urine Positive (Negative); WBC Urine 0-4 /hpf (0-5)
[2023-06-20] MEDS: LORazepam 2 mg Tablet PO (10:14)
[2023-06-20 10:32] LABS: Troponin(5th) Baseline < 6 ng/L (0-15)
[2023-06-20 11:08] LABS: Troponin 5 2HR Delta 0.00001 ABS# (0-10)
[2023-06-20 11:11] VITALS: BP 95/79
[2023-06-20 12:32] VITALS: BP 95/79; PULSE 69; RESP 16; TEMP 36.6; O2SAT 99
== END 2023-06-20 12:33 | disposition home or self-care (01) ==
PROVIDERS: Emergency Provider Family Medicine; PCP Family Medicine
DX: R07.89 Other chest pain (principal)
CPT/HCPCS: 71045; 80053; 80306; 80307; 81001; 84484; 85025; 85378; 93005; 99285

== ENCOUNTER 2023-06-20 14:49 | Emergency (ER) | payer MEDICAID, SELFPAY ==
[2023-06-20 14:57] VITALS: BP 130/76; PULSE 117; RESP 20; TEMP 36.7; O2SAT 98
--- NOTE | 2023-06-20 14:57 | ED.C_ITS ---
HPI - Psych General: Chief Complaint: Psychiatric Symptoms Stated Complaint: Behavioral issues Time Seen by Provider: 06/20/23 14:50 Source: patient Mode of arrival: ambulatory Limitations: no limitations History of Present Illness: 27-year-old male who is at [facility] n out reach with his he states that they have been arguing because of the brother it has been causing issues with their marriage. States police were called to get this evaluated due to they are arguing. Patient was sent here to make sure he is cleared to be resident there. Patient denies SI or HI he is calm and cooperative with me he has no signs acute psychosis. Associated symptoms: Deny auditory hallucinations, visual hallucinations, depression, homicidal ideation or suicidal ideation Review of Systems Const: Denies: fever(s), chills, body aches or change in appetite ENMT: Denies: throat pain or dental pain Card: Denies: chest pain Resp: Denies: dyspnea GI: Denies: abdominal pain, nausea, vomiting or diarrhea Musc: Denies: neck pain or back pain Skin/Breast: Denies: rash Neuro: Denies: headache(s) Psych: Reports: anxiety; Denies: depression, visual hallucinations, auditory hallucinations, suicidal ideation or homicidal ideation PFSH ED PFSH: Medical History Psychiatric care No pertinent family history Surgical History Status post tendon repair Physical Exam Const: COMMON NORMALS: no acute distress, patient oriented x3 and healthy appearing HENMT: COMMON NORMALS: normocephalic and atraumatic HEAD & SCALP: normocephalic and atraumatic Neck/C-Spine: COMMON NORMALS: full ROM and supple Chest: COMMONS NORMALS: normal inspection of the chest Resp: COMMON NORMALS: normal respiratory effort Cardio: COMMON NORMALS: regular rate, regular rhythm and No murmurs present (Cardio) RATE: regular rate RHYTHM: regular rhythm Extremity: COMMON NORMALS: normal to inspection and full ROM Neuro: COMMON NORMALS: patient oriented x3, moves all extremities and no focal motor deficits Psych: COMMON NORMALS: mental status grossly normal, Normal thought process present and cooperative THOUGHT PROCESS: Normal thought process present THOUGHT CONTENT: No Suicidality present, No Homicidality present and No Hallucination(s) present Skin: COMMON NORMALS: no rashes or lesions noted and no wounds GENERAL SKIN EXAM: no rashes or lesions noted Course Vital Signs: Vital signs: Vital Signs Temperature 98.1 F 06/20/23 14:57 Pulse Rate 117 H 06/20/23 14:57 Respiratory Rate 20 H 06/20/23 14:57 Blood Pressure 130/76 06/20/23 14:57 Pulse Oximetry 98 06/20/23 14:57 [facility] - Psych Medical Decision Making Patient presents here with some anxiety he is well-appearing here he is not suicidal or homicidal he has no signs of acute psychiatric issues he is stable for discharge Medical Records I reviewed the patient's medical records. 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
== END 2023-06-20 15:11 | disposition home or self-care (01) ==
PROVIDERS: Emergency Provider Emergency Medicine; PCP Family Medicine
DX: F41.9 Anxiety disorder, unspecified (principal)
CPT/HCPCS: 99281

== ENCOUNTER 2023-06-20 17:45 | Inpatient (IN) | payer MEDICAID, SELFPAY ==
[2023-06-20 17:46] VITALS: BP 130/77; PULSE 118; RESP 18; TEMP 36.8; O2SAT 98
--- NOTE | 2023-06-20 18:01 | PC.NURSE ---
96 hour hold rights read and reviewed with patient. Patient upset that he is here on a hold I want to know what was written about me to get me here i dont need to be here God Damn It. Copy of rights given to patient.
[2023-06-20] MEDS: nicotine 21 mg Patch 1 PATCH TRANSDERMA (18:03)
[2023-06-20 18:08] VITALS: PULSE 110; RESP 18
[2023-06-20 18:33] VITALS: O2SAT 99
[2023-06-20 18:47] LABS: Alanine Aminotransferase 9 U/L (0-41); Albumin Level 4.2 g/dL (3.5-5.2); Alkaline Phosphatase 58 U/L (40-130); Anion Gap 15.3 (5-19); Aspartate Amino Transferase 12 U/L (0-40); Blood Urea Nitrogen 12 mg/dL (6-20); Calcium 9.3 mg/dL (8.5-10.5); Carbon Dioxide 23 mmol/L (22-29); Chloride 103 mmol/L (98-107); Globulin 2.7 g/dL (1.3-4.6); Glomerular Filtration Rate 135.3 mL/min (90-130); Glucose 85 mg/dL (65-115); Osmolality Calculated 283 mOsm/kg (285-295); Potassium 4.3 mmol/L (3.5-5.1); Sodium 137 mmol/L (136-145); Total Bilirubin 0.6 mg/dL (0.15-1.2); Total Protein 6.9 g/dL (6.6-8.7)
[2023-06-20 18:49] LABS: Acetaminophen < 5.0 ug/mL (10-30); Alcohol Level < 10 mg/dL (0-10); Salicylate < 0.3 mg/dL (3-10)
[2023-06-20 18:51] LABS: Amphetamines Screen Urine Negative (Negative); Barbiturates Screen Urine Negative (Negative); Benzodiazepines Screen Urine Positive (Negative); Cocaine Screen Urine Negative (Negative); Opiate Screen Urine Positive (Negative); PCP Screen Urine Negative (Negative); THC Screen Urine Positive (Negative)
--- NOTE | 2023-06-20 18:58 | W.ED.PSYCHS ---
HPI - Psych General: Chief Complaint: Psychiatric Symptoms Stated Complaint: 96 Hold Time Seen by Provider: 06/20/23 17:46 Source: patient and police Mode of arrival: other Limitations: no limitations History of Present Illness: 27-year-old male has got an argument with his today at [facility]. Patient had a 96-hour hold placed on him by her. He does states that he got angry he denies being suicidal or homicidal currently but states that he feels like he probably needs to be admitted to be evaluated. He had a history of methamphetamine abuse but states he is currently not using. Associated symptoms: Reports depression Review of Systems Const: Denies: fever(s), chills, body aches or change in appetite ENMT: Denies: throat pain or dental pain Resp: Denies: dyspnea GI: Denies: abdominal pain, nausea, vomiting or diarrhea Musc: Denies: neck pain or back pain Skin/Breast: Denies: rash Neuro: Denies: headache(s) Psych: Reports: depression and mood swings [facility] ED PFSH: Medical History Psychiatric care No pertinent family history Surgical History Status post tendon repair Physical Exam Const: COMMON NORMALS: no acute distress, patient oriented x3 and healthy appearing HENMT: COMMON NORMALS: normocephalic and atraumatic HEAD & SCALP: normocephalic and atraumatic Neck/C-Spine: COMMON NORMALS: full ROM and supple Chest: COMMONS NORMALS: normal inspection of the chest Resp: COMMON NORMALS: normal respiratory effort, No retractions, No use of accessory muscles and clear to auscultation bilaterally AUSCULTATION: clear to auscultation bilaterally Cardio: COMMON NORMALS: regular rate, regular rhythm and No murmurs present (Cardio) RATE: regular rate RHYTHM: regular rhythm Extremity: COMMON NORMALS: normal to inspection and full ROM Neuro: COMMON NORMALS: patient oriented x3, moves all extremities and no focal motor deficits Psych: COMMON NORMALS: mental status grossly normal, Normal thought process present and cooperative THOUGHT PROCESS: Normal thought process present Skin: COMMON NORMALS: no rashes or lesions noted and no wounds GENERAL SKIN EXAM: no rashes or lesions noted Course Vital Signs: Vital signs: Vital Signs Temperature 98.2 F 06/20/23 17:46 Pulse Rate 110 H 06/20/23 18:08 Respiratory Rate 18 06/20/23 18:08 Blood Pressure 130/77 06/20/23 17:46 Pulse Oximetry 99 06/20/23 18:33 Oxygen Delivery Me thod Room Air 06/20/23 18:33 MDM - Psych Medical Decision Making Patient presents here with anger outburst along with some depression patient was placed under 96-hour hold he has been medically cleared I spoke to psychiatrist will admit at this time Medical Records I reviewed the patient's medical records. Lab Data I reviewed the patient's lab results. 06/20/23 09:54 Laboratory Results Sodium 137 mmol/L (136-145) 06/20/23 09:54 Potassium 4.3 mmol/L (3.5-5.1) 06/20/23 09:54 Chloride 103 mmol/L (98-107) 06/20/23 09:54 Carbon Dioxide 23 mmol/L (22-29) 06/20/23 09:54 Anion Gap 15.3 (5-19) 06/20/23 09:54 BUN 12 mg/dL (6-20) 06/20/23 09:54 Creatinine 0.7 mg/dL (0.7-1.2) 06/20/23 09:54 GFR Calculation 135.3 mL/min (90-130) H 06/20/23 09:54 Glucose 85 mg/dL (65-115) 06/20/23 09:54 Calculated Osmolality 283 mOsm/kg (285-295) L 06/20/23 09:54 Calcium 9.3 mg/dL (8.5-10.5) 06/20/23 09:54 Total Bilirubin 0.6 mg/dL (0.15-1.2) 06/20/23 09:54 AST 12 U/L (0-40) 06/20/23 09:54 ALT 9 U/L (0-41) 06/20/23 09:54 Alkaline Phosphatase 58 U/L (40-130) 06/20/23 09:54 Total Protein 6.9 g/dL (6.6-8.7) 06/20/23 09:54 Albumin 4.2 g/dL (3.5-5.2) 06/20/23 09:54 Globulin 2.7 g/dL (1.3-4.6) 06/20/23 09:54 Salicylates < 0.3 mg/dL (3-10) L 06/20/23 09:54 Urine Opiates Screen Positive ng/mL (Negative) H 06/20/23 18:32 Acetaminophen < 5.0 ug/mL (10-30) L 06/20/23 09:54 Ur Barbiturates Screen Negative ng/mL (Negative) 06/20/23 18:32 Ur Phencyclidine Scrn Negative ng/mL (Negative) 06/20/23 18:32 Ur Amphetamines Screen Negative ng/mL (Negative) 06/20/23 18:32 U Benzodiazepines Scrn Positive ng/mL (Negative) H 06/20/23 18:32 Urine Cocaine Screen Negative ng/mL (Negative) 06/20/23 18:32 U Marijuana (THC) Screen Positive ng/mL (Negative) H 06/20/23 18:32 Ethyl Alcohol < 10 mg/dL (0-10) 06/20/23 09:54 No radiology studies performed this visit Discharge Plan Discharge Patient Disposition: Admitted As Inpatient Clinical Impression: Acute anxiety, Depression, Outbursts of anger Condition: Stable Coding Level of Care Code ED Feather Separator for John Myers
[2023-06-20 20:27] VITALS: BP 113/77; PULSE 102; RESP 17; TEMP 36.6; O2SAT 99
[2023-06-20 21:02] VITALS: BMI 20.8
[2023-06-20 21:03] VITALS: RESP 17
[2023-06-20] MEDS: OLANZapine 5 mg ODT PO (21:29)
[2023-06-20 22:00] VITALS: BP 113/77; PULSE 102; RESP 17; TEMP 36.6; O2SAT 99
[2023-06-20] MEDS: trazodone 50 mg Tablet PO (23:37)
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
[2023-06-21 06:00] VITALS: BP 105/53; PULSE 80; RESP 14; O2SAT 97
[2023-06-21] MEDS: OLANZapine 5 mg ODT PO ×2 (09:57→20:37)
--- NOTE | 2023-06-21 09:59 | PC.NURSE ---
patient anxious, agitated, and animated. Administered zyprexa 5mg ODT to patient. patient said that music sometimes helps him calm down. This nurse offered other options for this moment, which patient declined
[2023-06-21] MEDS: nicotine 2 mg Gum BUCCAL (10:04)
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
[2023-06-21 14:00] VITALS: BP 94/53; PULSE 68; RESP 17; TEMP 36.4; O2SAT 97
[2023-06-21] MEDS: hyDROXYzine 25 mg Capsule 50 MG PO (17:53)
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
[2023-06-21 19:53] VITALS: BP 102/64; PULSE 72; RESP 16; TEMP 36.8; O2SAT 97
[2023-06-21] MEDS: nicotine 4 mg lozenge MUCOUS MEM (20:37)
[2023-06-21] MEDS: trazodone 50 mg Tablet PO (20:37)
[2023-06-21 22:00] VITALS: BP 102/64; PULSE 72; RESP 16; TEMP 36.8; O2SAT 97
[2023-06-22 06:00] VITALS: BP 100/57; PULSE 68; RESP 16; TEMP 36.7; O2SAT 98
[2023-06-22] MEDS: hyDROXYzine 25 mg Capsule 50 MG PO ×2 (06:48→17:53)
[2023-06-22] MEDS: nicotine 4 mg lozenge MUCOUS MEM ×4 (07:41→20:33)
[2023-06-22] MEDS: risperiDONE 0.25 mg Tablet PO (07:41)
[2023-06-22] MEDS: polyethylene glycol 3350 Pkt 17 gm PO (07:48)
[2023-06-22 13:40] VITALS: BP 110/73; PULSE 97; RESP 16; TEMP 36.4; O2SAT 99
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
--- NOTE | 2023-06-22 18:08 | PC.NURSE ---
Administered Vistaril 50mg PO to patient for anxiety.
[2023-06-22 20:30] VITALS: BP 108/68; PULSE 87; RESP 16; TEMP 36.6; O2SAT 98
[2023-06-22] MEDS: OLANZapine 5 mg ODT PO (20:33)
[2023-06-22] MEDS: trazodone 50 mg Tablet PO (20:33)
[2023-06-22] MEDS: risperiDONE 1 mg Tablet PO (20:33)
[2023-06-22 21:28] LABS: Add Urine Microscopic? YES; Bilirubin Urine Neg (Negative); Blood Urine 3+ (Negative); Glucose Urine UA Norm (Normal); Ketones Urine Negative (Negative); Leukocyte Esterase Urine Negative (Negative); Nitrate Urine Negative (Negative); Protein Urine Neg (Negative); Specific Gravity, Urine 1.005 (1.005-1.030); Urine Appearance SL Hazy (CLEAR); Urine Color Yellow (Yellow); Urobilinogen Urine Norm (Negative); pH Urine 7 (5-7)
[2023-06-22 21:29] LABS: Add Urine Culture? Yes; Bacteria Urine TRACE /hpf; RBC Urine 80-100 /hpf (0-2)
[2023-06-23 06:00] VITALS: BP 95/59; PULSE 62; RESP 16; O2SAT 98
[2023-06-23] MEDS: risperiDONE 0.25 mg Tablet PO (07:46)
[2023-06-23] MEDS: haloperidol 5 mg Tablet PO (07:46)
[2023-06-23] MEDS: nicotine 4 mg lozenge MUCOUS MEM ×4 (07:51→18:49)
[2023-06-23] MEDS: OLANZapine 5 mg ODT PO (09:49)
--- NOTE | 2023-06-23 09:52 | PC.NURSE ---
PT CONTINUES TO PACE AND YELL LOUDLY LET ME THE FUCK OUT OF HERE, JUST LET ME GO I HAVE SHIT TO DO. I HAVE MONEY AND PROJECTS. JUST GIVE ME A SCRIPT AND LET ME FUCKING LEAVE. PT THEN REQUESTS MORE ANXIETY MEDS, THAT SHIT YOU GAVE ME BEFORE IS NOT WORKING. I NEED A HIGH DOSE AND MAKE SURE ITS ATIVAN. PT WAS GIVEN ZYDIS 5 MG ORDERED FOR INCREASED ANXIETY AND AGITATION. DR. GARCÍA WAS NOTIFIED OF PT BEHAVIORS AND REQUESTS TO LEAVE AND SPEAK TO HIM. PT WAS EDUCATED ABOUT CURRENT BEHAVIORS AND HIS POOR ABILITY TO CONTROL ANGER IMPULSES AND NEED FOR ONGOING ANXIETY MEDICATIONS. PT WAS INFORMED THAT IF HE IS REQUIRING PRN MEDIATIONS EVERY 3-4 HOURS THEN HE PROBABLY IS NOT ABLE TO SAFELY DISCHARGE TODAY. PT GOT ON PHONE, SLAMMED PHONE DOWN THEN SHUT DOOR TO ROOM. DOOR WAS OPENED AND PT WAS INFORMED THAT THE DOOR NEEDS TO BE CRACKED AND CAN NOT BE SHUT ALL THE WAY DUE TO SAFETY REASONS. PT WAS UPSET AGAIN. ALL QUESTIONS WERE ANSWERED SUPPORT WAS VOICED.
[2023-06-23 14:00] VITALS: BP 98/56; PULSE 74; RESP 20; TEMP 36.6; O2SAT 99
--- NOTE | 2023-06-23 15:17 | PC.NURSE ---
PT CAME UP TO DR. GARCÍA AND STATED HE DID NOT WANT TO TAKE THE 0.25 MG RISPERODONE IN THE AM. DR. GARCÍA GAVE ORDERS TO DISCONTINUE THE AM DOSE OF RISPERODONE 0.25MG, PT VERBALIZED UNDERSTANDING.
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
[2023-06-23] MEDS: polyethylene glycol 3350 Pkt 17 gm PO (17:20)
--- NOTE | 2023-06-23 18:06 | PC.NURSE ---
PT HAS RECEIVED PRN ANXIETY MEDICATIONS THIS SHIFT FOR REPORTS OF INCREASED ANXIETY AND AGITATION. PT WAS GIVEN HALDOL 5 MG AND ZYDIS 5 MG ORDERED FOR ANXIETY. MEDICATIONS ARE DEEMED EFFECTIVE AT THIS TIME. PT HAS NOT HAD ANY FURTHER COMPLAINTS OF ANXIETY. SUPPORT WAS VOICED.
[2023-06-23 20:11] VITALS: BP 105/58; PULSE 88; RESP 16; TEMP 36.3; O2SAT 96
[2023-06-23] MEDS: risperiDONE 1 mg Tablet PO (20:45)
[2023-06-24 06:00] VITALS: BP 107/67; PULSE 104; RESP 18; TEMP 36.4; O2SAT 98
[2023-06-24] MEDS: nicotine 4 mg lozenge MUCOUS MEM ×2 (08:20→13:08)
--- NOTE | 2023-06-24 08:51 | PC.NURSE ---
IN DAY ROOM EATING BREAKFAST. REPORTS HE SLEPT WELL AND FEELS THE RISPERODONE IS WORKING AT NIGHT. PT RE-ENFORCES TO RN THAT IF HE DOES NOT TAKE ANY MORE PRN MEDICATIONS THAT THE DR WILL BE DISCHARGING PT TODAY. PT HAS NOT RECEIVED ANY PRN MEDICATIONS SINCE YESTERDAY AFTERNOON. DENIES SI/HI AND AVH AT THIS TIME. RATES ANXIETY AND DEPRESSION 0/10. DENIES PAIN. PT AFFECT IS NOTED TO BE UPBEAT THIS MORNING AND IS ANTICIPATING DISCHARGE BACK TO THE [facility] WITH HIS AND CHILD. ALL QUESTIONS WERE ANSWERED AND SUPPORT WAS VOICED.
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
[2023-06-24 13:46] VITALS: BP 107/67; PULSE 104; RESP 18; TEMP 36.4; O2SAT 98
== END 2023-06-24 14:00 | disposition home or self-care (01) | DRG 880 ==
LOC: ER 19:02 → NP 19:41
PROVIDERS: Admitting Provider Psychiatry & Neurology Psychiatry; Emergency Provider Emergency Medicine; PCP Family Medicine; Visit Provider Psychiatry & Neurology Psychiatry
DX: F41.9 Anxiety disorder, unspecified (principal); Z59.00 Homelessness unspecified; F32.A Depression, unspecified; R45.4 Irritability and anger; Z63.0 Problems in relationship with spouse or partner; Z62.820 Parent-biological child conflict; F43.10 Post-traumatic stress disorder, unspecified; Z86.59 Personal history of other mental and behavioral disorders; Z91.52 Personal history of nonsuicidal self-harm; Z62.810 Personal history of physical and sexual abuse in childhood; F10.11 Alcohol abuse, in remission; F14.11 Cocaine abuse, in remission; F15.11 Other stimulant abuse, in remission; F12.11 Cannabis abuse, in remission
CPT/HCPCS: 80053; 80306; 80307; 81001; 87086; 97150; 97165; 99285

== ENCOUNTER 2024-01-09 21:50 | Emergency (ER) | payer MEDICAID, SELFPAY ==
[2024-01-09 21:56] VITALS: BP 155/97; PULSE 101; RESP 16; TEMP 36.8; O2SAT 100; BMI 23.6
[2024-01-09 22:00] VITALS: BP 143/92; PULSE 98; RESP 16; O2SAT 100
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
[2024-01-09 22:12] LABS: Basophils # 0.1 10^3/uL (0.0-0.1); Basophils % 0.7 %; Eosinophils # 0.1 10^3/uL (0.0-0.8); Eosinophils % 1.4 %; Hematocrit 41.4 % (37-53); Lymphocytes % 48.9 %; Mean Corpuscular HGB Conc 34.3 g/dL (30-55); Mean Corpuscular Hemoglobin 32.5 pg (27-33); Mean Corpuscular Volume 94.7 fl (82-101); Monocytes # 0.5 10^3/uL (0.2-0.9); Monocytes % 5.2 %; Neutrophils # 4.42 10^3/uL (1.8-7.7); Neutrophils % 43.2 %; Nucleated Red Blood Cells % 0 %; Platelet Count 272 10^3/cmm (157-399); Red Blood Count 4.37 10^6/uL (3.85-5.65); Red Cell Distribution Width 11.7 % (12.1-15.1); White Blood Count 10.22 10^3/uL (3.29-11.43)
[2024-01-09 22:15] VITALS: BP 121/76; PULSE 103; RESP 16; O2SAT 100
[2024-01-09 22:27] LABS: Alanine Aminotransferase 15 U/L (0-41); Alkaline Phosphatase 62 U/L (40-130); Anion Gap 18.4 (5-19); Blood Urea Nitrogen 11 mg/dL (6-20); Calcium 8.2 mg/dL (8.5-10.5); Carbon Dioxide 23 mmol/L (22-29); Chloride 104 mmol/L (98-107); Creatinine Clr Calc Pharmacy 111.1444; Globulin 2.5 g/dL (1.3-4.6); Glucose 128 mg/dL (65-115); Osmolality Calculated 295 mOsm/kg (285-295); Potassium 3.4 mmol/L (3.5-5.1); Sodium 142 mmol/L (136-145); Total Bilirubin 0.4 mg/dL (0.15-1.2); Total Protein 7.5 g/dL (6.6-8.7)
[2024-01-09 22:28] LABS: Lactic Sepsis W/Reflex 3.4 mmol/L (0.5-2.2)
[2024-01-09 22:33] VITALS: BP 130/90; PULSE 95; RESP 16; O2SAT 100
[2024-01-09] MEDS: iohexol 350 mg/mL 500 mL Btl (per mL) IV (22:59)
[2024-01-09 23:00] VITALS: BP 127/74; PULSE 101; RESP 16; O2SAT 95
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
[2024-01-09] MEDS: ketorolac 30 mg/mL INJ IVP (23:20)
[2024-01-09 23:21] LABS: Alcohol Level 110 mg/dL (0-10)
[2024-01-09 23:42] VITALS: BP 115/72; PULSE 98; RESP 16; O2SAT 100
[2024-01-09 23:57] LABS: Reflex Lactate Order REFLEX LACTIC ORDERD
[2024-01-10 00:18] LABS: Aspartate Amino Transferase 27 U/L (0-40)
== END 2024-01-09 23:47 | disposition home or self-care (01) ==
PROVIDERS: Emergency Provider Emergency Medicine
DX: S02.2XXA Fracture of nasal bones, initial encounter for closed fracture (principal); S09.90XA Unspecified injury of head, initial encounter; S16.1XXA Strain of muscle, fascia and tendon at neck level, initial encounter; V89.2XXA Person injured in unspecified motor-vehicle accident, traffic, initial encounter; F10.129 Alcohol abuse with intoxication, unspecified; Y90.5 Blood alcohol level of 100-119 mg/100 ml
CPT/HCPCS: 70450; 70486; 71260; 72125; 73552; 74177; 80053; 80307; 83605; 85025; 96374; 99285; J1885

== ENCOUNTER 2024-12-16 17:15 | Emergency (ER) | payer MEDICAID, SELFPAY ==
[2024-12-16] VITALS (11 sets, daily range): BP systolic 126–138; BP diastolic 76–92; PULSE 75–126; RESP 16–18; TEMP 36.3; O2SAT 92–97
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
[2024-12-16 17:46] LABS: Hematocrit 38.2 % (37-53); Hemoglobin 13.20 g/dL (11.27-16.99); Mean Corpuscular HGB Conc 34.6 g/dL (30-55); Mean Corpuscular Hemoglobin 32.4 pg (27-33); Mean Corpuscular Volume 93.6 fl (82-101); Nucleated Red Blood Cells % 0 %; Platelet Count 178 10^3/cmm (157-399); Red Blood Count 4.08 10^6/uL (3.85-5.65); White Blood Count 7.72 10^3/uL (3.29-11.43)
[2024-12-16] MEDS: ketamine 100 mg/mL Inj 5 mL 150 MG IVP (17:54)
[2024-12-16 18:16] LABS: Alanine Aminotransferase 16 U/L (0-41); Albumin Level 4.7 g/dL (3.5-5.2); Alcohol Level 299 mg/dL (0-10); Alkaline Phosphatase 56 U/L (40-130); Anion Gap 15.4 (5-19); Aspartate Amino Transferase 20 U/L (0-40); Blood Urea Nitrogen 9 mg/dL (6-20); Calcium 8.9 mg/dL (8.5-10.5); Carbon Dioxide 23 mmol/L (22-29); Chloride 111 mmol/L (98-107); Creatinine Clr Calc Pharmacy 117.2218; Globulin 2.6 g/dL (1.3-4.6); Glucose 130 mg/dL (65-115); Osmolality Calculated 302 mOsm/kg (285-295); Potassium 3.4 mmol/L (3.5-5.1); Sodium 146 mmol/L (136-145); Thyroid Stimulating Hormone 0.72 uIU/mL (0.27-4.20); Total Protein 7.3 g/dL (6.6-8.7)
[2024-12-16 18:22] LABS: Acetaminophen < 5.0 ug/mL (10-30); Salicylate < 0.3 mg/dL (3-10)
--- NOTE | 2024-12-16 18:28 | ECG_ITS ---
[employer] [facility] Test Date: 2024-12-16 Pat Name: Mike Rocha Department: Room: Gender: Male [employer]: : 1995 Requested By: Tracee Ortiz Order Number: [id number] Miranda MD: Amy Christianson M.D. Measurements Intervals [place] Rate: 91 P: 62 NV: 123 QRS: 71 QRSD: 98 T: 46 QT: 359 QTc: 443 Interpretive Statements SINUS RHYTHM Compared to ECG 06/20/2023 10:03:15 Sinus bradycardia no longer present Sinus arrhythmia no longer present Early repolarization no longer present Electronically Signed On 12-16-2024 20:10:08 CDT by Amy Christianson M.D. [email or web address]
[2024-12-16] MEDS: ketamine 100 mg/mL Inj 5 mL 300 MG IM ×2 (18:57→21:04)
--- NOTE | 2024-12-16 21:02 | CTR_ITS ---
PROCEDURE INFORMATION: Exam: CT Head Without Contrast Exam date and time: 12/16/2024 9:13 PM Age: 28 years old Clinical indication: Alteration of consciousness; Additional info: AMS TECHNIQUE: Imaging protocol: Computed tomography of the head without contrast. Radiation optimization: All CT scans at this facility use at least one of these dose optimization techniques: automated exposure control; mA and/or kV adjustment per patient size (includes targeted exams where dose is matched to clinical indication); or iterative reconstruction. COMPARISON: CT head wo con* [id number] 01/09/2024 10:35 PM RADIATION DOSE METRICS: Total DLP (mGy-cm): 1050.98 FINDINGS: Brain: No CT evidence for acute ischemia, mass or hemorrhage. No extra-axial fluid collection, midline shift or hydrocephalus. A 3 mm hyperdensity in the left basal ganglia is unchanged since 2023 and should be incidental such as focal calcium. Sulci and ventricles are appropriate in size for age. Cerebral ventricles: See Brain finding. Paranasal sinuses: Scattered mucosal thickening in the paranasal sinuses. Mastoid air cells: Visualized mastoid air cells are well aerated. Bones: Unremarkable. No acute fracture. Soft tissues: Unremarkable. CT/CT head wo con* [id number] IMPRESSION: No acute intracranial findings
[2024-12-16] MEDS: ondansetron 2 mg/ML SDV 2 mL 4 MG IVP (23:47)
[2024-12-17 01:54] VITALS: BP 109/69; PULSE 87; O2SAT 98
[2024-12-17] MEDS: diphenhydrAMINE 50 mg/mL SDV 1mL IM (05:27)
[2024-12-17] MEDS: metoclopramide 5 mg/mL SDV 2 mL 10 MG IM (05:28)
--- NOTE | 2024-12-17 06:17 | PC.NURSE ---
AROUND 0030 NURSE TECH WAS ATTEMPTING TO HELP THE PT AMBULATE FOR DISCHARGE. PT WAS ON THE EDGE OF THE BED WITH TECH AT BEDSIDE AND WHEN THE PT ATTEMTED TO STAND THE PT FELL TO ONE KNEE. PT DID NOT HIT HIS HEAD AND NO INJURY OCCURRED
== END 2024-12-17 06:36 | disposition home or self-care (01) ==
PROVIDERS: Emergency Medicine; Emergency Provider Emergency Medicine
DX: F10.129 Alcohol abuse with intoxication, unspecified (principal); Y90.8 Blood alcohol level of 240 mg/100 ml or more
CPT/HCPCS: 36415; 70450; 80053; 80307; 84443; 85025; 93005; 96361; 96372; 96374; 96375; 99285; J1200; J2405; J2765; J3490; J7030

== ENCOUNTER 2025-02-14 14:00 | Emergency (ER) | payer MEDICAID, SELFPAY ==
[2025-02-14 14:31] VITALS: BP 120/65; PULSE 85; RESP 18; TEMP 36.6; O2SAT 100
--- NOTE | 2025-02-14 14:46 | ED_ITS ---
HPI - Dental/Oral 2 General: Chief complaint: Dental/Oral Stated complaint: R side mouth pain Time Seen by Provider: 02/14/25 14:46 Source: patient Mode of arrival: ambulatory Limitations: no limitations History of Present Illness: Patient is a 29-year-old male who presents to ED today with a complaint of right upper dental pain. Patient states he has an impacted third molar that chronically gives him issues. He states he knows that is decayed. He states today a portion of the tooth broke off and now he is having severe pain. He does not see a dentist. He is not complaining of facial pain, headache, fevers or any other symptoms. MD Complaint: tooth pain and tooth injury Teeth map: 1. Onset (ago): hour(s) Duration: constant Severity: severe Severity scale (1-10): 10 Relieving factors: nothing Context: history of dental caries and poor dental care Associated symptoms: Reports no associated symptoms; Denies ear or mastoid pain, fever(s) or odynophagia Treatment prior to arrival: none Related Data Previous Rx's ?Medication ?Instructions ?Recorded naproxen 500 mg tablet 500 mg PO Q12H PRN pain #20 tabs 06/09/23 famotidine 40 mg tablet (Pepcid) 40 mg PO BID #60 tabs 06/20/23 hydroxyzine pamoate 25 mg capsule 50 mg (2 x 25 mg) PO Q6H PRN 06/24/23 Anxiety 30 days #120 caps polyethylene glycol 3350 17 gram 17 g PO DAILY 30 days #510 grams 06/24/23 oral powder packet risperidone 1 mg tablet 1 mg PO BEDTIME 30 days #30 tabs 06/24/23 trazodone 50 mg tablet 50 mg PO BEDTIME PRN Sleep 3 0 days 06/24/23 #30 tabs cyclobenzaprine 10 mg tablet 10 mg PO Q8H PRN muscle s pasm #20 01/09/24 tabs diclofenac sodium 50 mg 50 mg PO BID PRN pain #14 ta bs 01/09/24 tablet,delayed release ondansetron 8 mg disintegrating 8 mg PO Q6H #14 tabs 1 tablet amoxicillin 500 mg capsule 500 mg PO BID 10 days #20 c aps 02/14/25 tramadol 50 mg tablet 50 mg PO Q6H PRN pain #8 tab s 02/14/25 Allergies Allergy/AdvReac Type Severity Reaction Status Date / Time ketorolac (From Toradol) Allergy Unknown Verified 02/14/25 14:36 Review of Systems 2 Const: Denies: fever(s), chills, body aches, fatigue or malaise Eyes: Denies: change in vision, blurry vision, photophobia, floaters or seeing flashes ENMT: Reports: dental pain; Denies: throat pain, uvular edema, enlarged tonsils, odynophagia, hoarseness, mouth pain, swelling of lips/tongue, oral sores, ear or mastoid pain, nasal discharge, nasal congestion or sinus pain Card: Denies: chest pain Resp: Denies: dyspnea GI: Denies: nausea or vomiting Musc: Denies: neck pain Neuro: Denies: headache(s), numbness in extremities, weakness in extremities or sensory changes PFSH ED 2 PFSH: Medical History No pertinent family history Surgical History Status post tendon repair Physical Exam 2 Const: COMMON NORMALS: no acute distress, average body habitus, patient oriented x3, no limitations, healthy appearing, alert and well nourished G ENERAL APPEARANCE: cooperative ORIENTATION/CONSCIOUSNESS: Yes awake, Yes oriented to person, Yes oriented to place and Yes oriented to time HENMT: FACE & SINUS: normal facial exam; no crepitus, no erythema, no edema and no fluctuance MOUTH: Normal oral and palatal mucosa present, lip normal, tongue normal and Normal salivary glands and ducts present TEETH & GINGIVA IMAGES: 1. impacted/fractured molar; no surrounding edema/abscess THROAT: no uvular edema Eye: GENERAL EYE: appearance normal, both eyes and all related structures Neck/C-Spine: COMMON NORMALS: no lymphadenopathy GENERAL: No anterior neck swelling and No submandibular swelling Resp: COMMON NORMALS: normal respiratory effort and clear to auscultation bilaterally AUSCULTATION: clear to auscultation bilaterally Cardio: COMMON NORMALS: regular rate and regular rhythm RATE: regular rate RHYTHM: regular rhythm Extremity: GENERAL: Yes normal exam except as noted Neuro: KRYSTAL COMA SCALE: document GCS findings [place] coma scale eye opening: Spontaneous [place] coma scale verbal response: Orientated [place] coma scale motor response: Obey commands [place] coma scale total score: 15 COMMON NORMALS: patient oriented x3, CN's II-XII intact bilaterally, moves all extremities, no focal motor deficits and no sensory deficits noted S ENSORIUM/ORIENTATION: Yes alert, Yes oriented to person, Yes oriented to place and Yes oriented to time Course 2 Vital Signs: Vital signs: Vital Signs Temperature 97.9 F 02/14/25 14:31 Pulse Rate 85 02/14/25 14:31 Respiratory Rate 18 02/14/25 14:31 Blood Pressure 120/65 02/14/25 14:31 Pulse Oximetry 100 02/14/25 14:31 Oxygen Delivery Me thod Room Air 02/14/25 14:31 MDM - Dental/Oral Medical Decision Making Patient will be covered with antibiotics to prevent infection. He was encouraged to follow-up with a dentist as soon as possible. Return to ED precautions discussed. Differential Diagnosis Likely dental caries, toothache, dental abscess and fracture of tooth Medical Records I reviewed the patient's medical records. No radiology studies performed this visit Discharge Plan Discharge Patient Disposition: Home Clinical Impression: Pain, dental Fracture of tooth Qualifiers: Encounter type: initial encounter Fracture type: closed Qualified Code(s): S 02.5XXA - Fracture of tooth (traumatic), initial encounter for closed fracture Condition: Stable Prescriptions: New amoxicillin 500 mg capsule 500 mg PO BID 10 Days Qty: 20 0RF tramadol 50 mg tablet 50 mg PO Q6H PRN (Reason: pain) Qty: 8 0RF No Action trazodone 50 mg Tablet 50 mg PO BEDTIME PRN (Reason: Sleep) 30 Days Qty: 30 1RF risperidone 1 mg Tablet 1 mg PO BEDTIME 30 Days Qty: 30 1RF hydroxyzine pamoate 25 mg Capsule 50 mg PO Q6H PRN (Reason: Anxiety) 30 Days Qty: 120 1RF polyethylene glycol 3350 17 gram Powder In Packet 17 g PO DAILY 30 Days Qty: 510 1RF cyclobenzaprine 10 mg tablet 10 mg PO Q8H PRN (Reason: muscle spasm) Qty: 20 0RF ondansetron 8 mg tablet,disintegrating 8 mg PO Q6H Qty: 14 0RF Rx Instructions: Take 1/2-1 tab every 6 hours as needed for nausea and vomiting diclofenac sodium 50 mg tablet,delayed release (DR/EC) 50 mg PO BID PRN (Reason: pain) Qty: 14 0RF naproxen 500 mg tablet 500 mg PO Q12H PRN (Reason: pain) Qty: 20 0RF famotidine [Pepcid] 40 mg tablet 40 mg PO BID Qty: 60 0RF Discharge Orders: Discharge ED (Routine); Ordered 02/14/25 Ordered By: Angella Rea Patient Instructions: Acute Dental Trauma (ED), Toothache (ED), Opioid Safety, Pain Management, Patient Portal & [facility] Instructions Activity Restrictions/Additional Instructions: As we discussed, you need to follow-up with a dentist to soon as possible. 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
== END 2025-02-14 15:11 | disposition home or self-care (01) ==
PROVIDERS: Emergency Provider Physician Assistant
DX: S02.5XXA Fracture of tooth (traumatic), initial encounter for closed fracture (principal); X58.XXXA Exposure to other specified factors, initial encounter; K08.89 Other specified disorders of teeth and supporting structures
CPT/HCPCS: 99283

== ENCOUNTER 2025-02-14 15:40 | Emergency (ER) | payer MEDICAID, SELFPAY ==
[2025-02-14 15:43] VITALS: BP 131/85; PULSE 83; RESP 18; TEMP 36.4; O2SAT 100
[2025-02-14 16:56] LABS: Hematocrit 39.9 % (37-53); Hemoglobin 13.50 g/dL (11.27-16.99); Mean Corpuscular HGB Conc 33.8 g/dL (30-55); Mean Corpuscular Hemoglobin 32.3 pg (27-33); Mean Corpuscular Volume 95.5 fl (82-101); Nucleated Red Blood Cells % 0 %; Platelet Count 235 10^3/cmm (157-399); Red Blood Count 4.18 10^6/uL (3.85-5.65); White Blood Count 6.11 10^3/uL (3.29-11.43)
[2025-02-14 17:18] LABS: Alanine Aminotransferase 12 U/L (0-41); Albumin Level 4.8 g/dL (3.5-5.2); Alkaline Phosphatase 54 U/L (40-130); Anion Gap 14.1 (5-19); Aspartate Amino Transferase 19 U/L (0-40); Blood Urea Nitrogen 10 mg/dL (6-20); Calcium 9.3 mg/dL (8.5-10.5); Carbon Dioxide 28 mmol/L (22-29); Chloride 99 mmol/L (98-107); Globulin 2.4 g/dL (1.3-4.6); Glucose 93 mg/dL (65-115); Osmolality Calculated 283 mOsm/kg (285-295); Potassium 4.1 mmol/L (3.5-5.1); Sodium 137 mmol/L (136-145); Total Protein 7.2 g/dL (6.6-8.7)
[2025-02-14 17:21] LABS: Acetaminophen < 5.0 ug/mL (10-30); Alcohol Level < 10 mg/dL (0-10); Salicylate < 0.3 mg/dL (3-10)
--- NOTE | 2025-02-14 18:23 | ED_ITS ---
HPI - Alcohol 2 General: Chief Complaint: Alcohol Stated Complaint: Want help to Detox N/V Time Seen by Provider: 02/14/25 18:05 Source: patient Mode of arrival: ambulatory Limitations: no limitations History of Present Illness: Patient is a 29-year-old male who presents to the ED today stating he wants somewhere to detox from alcohol and methamphetamine. He states he chronically uses the substances. He states he has not reached out to any type of detox facility. He states he is homeless living in his car and is tired of this and just wants somewhere better for the next few days . Patient states he does utilize our crisis stabilization center and sometimes will shower there. Patient states has utilized local homeless shelters but states he has been kicked out of these indefinitely . Patient's vital signs are stable. He has no physical complaints upon arrival. MD complaint: desires rehab and medical clearance for detox facility Last drink: Hours (ago) (early this AM) Chronic alcohol use: Yes Recent trauma: No Associated symptoms: Reports no associated symptoms; Deny abdominal pain, hematemesis, melena, nausea, suicidal ideation or vomiting Treatments prior to arrival: none Related Data Previous Rx's ?Medication ?Instructions ?Recorded naproxen 500 mg tablet 500 mg PO Q12H PRN pain #20 tabs 06/09/23 famotidine 40 mg tablet (Pepcid) 40 mg PO BID #60 tabs 06/20/23 hydroxyzine pamoate 25 mg capsule 50 mg (2 x 25 mg) PO Q6H PRN 06/24/23 Anxiety 30 days #120 caps polyethylene glycol 3350 17 gram 17 g PO DAILY 30 days #510 grams 06/24/23 oral powder packet risperidone 1 mg tablet 1 mg PO BEDTIME 30 days #30 tabs 06/24/23 trazodone 50 mg tablet 50 mg PO BEDTIME PRN Sleep 3 0 days 06/24/23 #30 tabs cyclobenzaprine 10 mg tablet 10 mg PO Q8H PRN muscle s pasm #20 01/09/24 tabs diclofenac sodium 50 mg 50 mg PO BID PRN pain #14 ta bs 01/09/24 tablet,delayed release ondansetron 8 mg disintegrating 8 mg PO Q6H #14 tabs 1 tablet amoxicillin 500 mg capsule 500 mg PO BID 10 days #20 c aps 02/14/25 tramadol 50 mg tablet 50 mg PO Q6H PRN pain #8 tab s 02/14/25 Allergies Allergy/AdvReac Type Severity Reaction Status Date / Time ketorolac (From Toradol) Allergy Unknown Verified 02/14/25 14:36 Review of Systems 2 Const: Denies: fever(s) Card: Denies: chest pain Resp: Denies: dyspnea GI: Denies: abdominal pain, nausea, vomiting, hematemesis, hematochezia or melena Neuro: Denies: headache(s) or dizziness Psych: Reports: anxiety; Denies: paranoia, visual hallucinations, auditory hallucinations, suicidal ideation or homicidal ideation PFSH ED 2 PFSH: Medical History No pertinent family history Surgical History Status post tendon repair Physical Exam 2 Const: COMMON NORMALS: no acute distress, average body habitus, patient oriented x3, no limitations, healthy appearing, alert and well nourished G ENERAL APPEARANCE: cooperative Resp: COMMON NORMALS: normal respiratory effort and clear to auscultation bilaterally AUSCULTATION: clear to auscultation bilaterally Cardio: COMMON NORMALS: regular rate and regular rhythm RATE: regular rate RHYTHM: regular rhythm Neuro: KRYSTAL COMA SCALE: document GCS findings [place] coma scale eye opening: Spontaneous [place] coma scale verbal response: Orientated [place] coma scale motor response: Obey commands [place] coma scale total score: 15 COMMON NORMALS: patient oriented x3, CN's II-XII intact bilaterally, moves all extremities, no focal motor deficits, no sensory deficits noted and gait normal SENSORIUM/ORIENTATION: Yes alert Course 2 Vital Signs: Vital signs: Vital Signs Temperature 97.5 F L 02/14/25 15:43 Pulse Rate 83 02/14/25 15:43 Respiratory Rate 18 02/14/25 15:43 Blood Pressure 131/85 02/14/25 15:43 Pulse Oximetry 100 02/14/25 15:43 Oxygen Delivery Me thod Room Air 02/14/25 15:43 MDM - Alcohol Medical Decision Making Patient has no symptoms of acute alcohol withdrawal. Discussed with him how the hospital/NPU does not do medical detox unless patients are unstable. Patient is not suicidal or homicidal. He does not meet criteria for hospitalization or emergent admission to NPU. Recommend he reach out to [facility] as soon as possible to get on a waiting list for a bed placement. Recommend he continue to access our crisis stabilization center for basic need resources. Return precautions discussed. Differential Diagnosis Likely alcohol withdrawal delirium, alcohol intoxication and alcohol withdrawal syndrome Medical Records I reviewed the patient's medical records. Lab Data I reviewed the patient's lab results. 02/14/25 16:49 02/14/25 16:49 Laboratory Results WBC 6.11 10^3/uL (3.29-11.43) 02/14/25 16:49 RBC 4.18 10^6/uL (3.85-5.65) 02/14/25 16:49 Hgb 13.50 g/dL (11.27-16.99) 02/14/25 16:49 Hct 39.9 % (37-53) 02/14/25 16:49 MCV 95.5 fl (82-101) 02/14/25 16:49 MCH 32.3 pg (27-33) 02/14/25 16:49 MCHC 33.8 g/dL (30-55) 02/14/25 16:49 RDW 12.1 % (12.1-15.1) 02/14/25 16:49 Plt Count 235 10^3/cmm (157-399) 02/14/25 16:49 MPV 9.8 fL (7.4-10.4) 02/14/25 16:49 Neut % (Auto) 59.8 % 02/14/25 16:49 Lymph % (Auto) 30.9 % 02/14/25 16:49 [place] % (Auto) 7.5 % 02/14/25 16:49 Eos % (Auto) 1.1 % 02/14/25 16:49 Baso % (Auto) 0.5 % 02/14/25 16:49 Neut # (Auto) 3.65 10^3/uL (1.8-7.7) 02/14/25 16:49 Lymph # (Auto) 1.9 10^3/uL (0.8-4.8) 02/14/25 16:49 [place] # (Auto) 0.5 10^3/uL (0.2-0.9) 02/14/25 16:49 Eos # (Auto) 0.1 10^3/uL (0.0-0.8) 02/14/25 16:49 Baso # (Auto) 0.0 10^3/uL (0.0-0.1) 02/14/25 16:49 Nucleated RBC % (auto) 0 % 02/14/25 16:49 Nucleated RBCs # 0.0 /100WBC 02/14/25 16:49 Sodium 137 mmol/L (136-145) 02/14/25 16:49 Potassium 4.1 mmol/L (3.5-5.1) 02/14/25 16:49 Chloride 99 mmol/L (98-107) 02/14/25 16:49 Carbon Dioxide 28 mmol/L (22-29) 02/14/25 16:49 Anion Gap 14.1 (5-19) 02/14/25 16:49 BUN 10 mg/dL (6-20) 02/14/25 16:49 Creatinine 0.8 mg/dL (0.7-1.2) 02/14/25 16:49 GFR Calculation 114.3 mL/min (90-130) 02/14/25 16:49 Glucose 93 mg/dL (65-115) 02/14/25 16:49 Calculated Osmolality 283 mOsm/kg (285-295) L 02/14/25 16:49 Calcium 9.3 mg/dL (8.5-10.5) 02/14/25 16:49 Total Bilirubin 0.5 mg/dL (0.15-1.2) 02/14/25 16:49 AST 19 U/L (0-40) 02/14/25 16:49 ALT 12 U/L (0-41) 02/14/25 16:49 Alkaline Phosphatase 54 U/L (40-130) 02/14/25 16:49 Total Protein 7.2 g/dL (6.6-8.7) 02/14/25 16:49 Albumin 4.8 g/dL (3.5-5.2) 02/14/25 16:49 Globulin 2.4 g/dL (1.3-4.6) 02/14/25 16:49 Salicylates < 0.3 mg/dL (3-10) L 02/14/25 16:49 Acetaminophen < 5.0 ug/mL (10-30) L 02/14/25 16:49 Ethyl Alcohol < 10 mg/dL (0-10) 02/14/25 16:49 No radiology studies performed this visit Discharge Plan Discharge Patient Disposition: Home Clinical Impression: Chronic alcohol abuse, Methamphetamine abuse Condition: Stable Prescriptions: No Action trazodone 50 mg Tablet 50 mg PO BEDTIME PRN (Reason: Sleep) 30 Days Qty: 30 1RF risperidone 1 mg Tablet 1 mg PO BEDTIME 30 Days Qty: 30 1RF hydroxyzine pamoate 25 mg Capsule 50 mg PO Q6H PRN (Reason: Anxiety) 30 Days Qty: 120 1RF polyethylene glycol 3350 17 gram Powder In Packet 17 g PO DAILY 30 Days Qty: 510 1RF cyclobenzaprine 10 mg tablet 10 mg PO Q8H PRN (Reason: muscle spasm) Qty: 20 0RF ondansetron 8 mg tablet,disintegrating 8 mg PO Q6H Qty: 14 0RF Rx Instructions: Take 1/2-1 tab every 6 hours as needed for nausea and vomiting diclofenac sodium 50 mg tablet,delayed release (DR/EC) 50 mg PO BID PRN (Reason: pain) Qty: 14 0RF naproxen 500 mg tablet 500 mg PO Q12H PRN (Reason: pain) Qty: 20 0RF famotidine [Pepcid] 40 mg tablet 40 mg PO BID Qty: 60 0RF amoxicillin 500 mg capsule 500 mg PO BID 10 Days Qty: 20 0RF tramadol 50 mg tablet 50 mg PO Q6H PRN (Reason: pain) Qty: 8 0RF Discharge Orders: Discharge ED (Routine); Ordered 02/14/25 Ordered By: Angella Rea Patient Instructions: Alcohol Withdrawal (ED), Patient Portal & Dago Instructions Activity Restrictions/Additional Instructions: As we discussed, I recommend going to [facility] soon as possible to try to get a bed or wait list for bed placement. As we discussed there are addresses [address] [place] [address]. Their number is . Please continue to utilize our crisis stabilization center for basic needs regarding your homelessness including food/showers/snf/etc. Print Language: Maltese Coding Level of Care Code ED Pool Technician for John Myers
== END 2025-02-14 18:37 | disposition home or self-care (01) ==
PROVIDERS: Emergency Provider Physician Assistant
DX: F10.10 Alcohol abuse, uncomplicated (principal); F15.10 Other stimulant abuse, uncomplicated
CPT/HCPCS: 36415; 80053; 80307; 85025; 99283